=== PATIENT | female | born 1935 | race Caucasian/White ===

== ENCOUNTER 2023-09-02 13:21 | Outpatient (CLI) | payer MEDICARE, BC, SELFPAY | END 2023-09-02 13:22 | disposition home or self-care (01) | LOC: AMB 09-03 16:01 | PROVIDERS: PCP Family Medicine; Visit Provider Family Medicine | DX: R53.1 Weakness (principal) | CPT/HCPCS: A0998 ==

== ENCOUNTER 2024-03-15 15:22 | Outpatient (CLI) | payer MEDICARE, BC, SELFPAY | END 2024-03-15 15:23 | disposition home or self-care (01) | LOC: AMB 03-20 13:27 | PROVIDERS: PCP Family Medicine; Visit Provider Student in an Organized Health Care Education/Training Program | DX: R07.89 Other chest pain (principal) | CPT/HCPCS: A0425; A0427 ==

== ENCOUNTER 2024-07-26 11:05 | Outpatient (CLI) | payer MEDICARE, BC, SELFPAY | END 2024-07-26 11:06 | disposition home or self-care (01) | LOC: AMB 07-28 04:25 | PROVIDERS: PCP Family Medicine; Visit Provider Emergency Medicine Emergency Medical Services | DX: R10.9 Unspecified abdominal pain (principal) | CPT/HCPCS: A0425; A0427 ==